=== PATIENT | female | born 1955 | race Caucasian/White ===

== ENCOUNTER 2020-09-27 13:40 | Outpatient (REF) | payer BC, SELFPAY ==
[2020-09-30 10:22] LABS: SARS-CoV-2 RNA Not Detected (NotDetected); SARS-CoV-2 RNA Source Nasal/Nares
== END 2020-09-27 14:00 ==
LOC: NCHCN 13:40
PROVIDERS: PCP Internal Medicine; Visit Provider Family Medicine
DX: J06.9 Acute upper respiratory infection, unspecified (principal)
CPT/HCPCS: U0003

== ENCOUNTER 2023-05-01 15:16 | Outpatient (REF) | payer BC, SELFPAY ==
--- NOTE | 2023-05-01 14:00 | PAPFT_PTH ---
PATIENT: Elicia Adorno LOC: [facility]#:[id number] AGE/SX: 67/F ROOM: RE05/01/[address]: Monika Salazar : 1955 BED: DIS: 05/01/2023 SPEC #: [id number] RECD: 05/02/23 12:59 STATUS: DIVINA RESada #: [id number] SANAZ: 05/01/23 14:[address]: Monika Salazar DEPT: REPLACED BY [facility] Cytology RECD BY: Maite Bee ENTERED: 05/02/23 12:59 SP TYPE: PAPFT OTHR DR: Remington Rutledge Tissues: 1 - CX/ENDOCX FOR PAP SMEARS Procedures: PAP THIN PREP/[facility] Screening HPV DNA PROBE Comments: [id number]
== END 2023-05-01 15:17 | disposition home or self-care (01) ==
LOC: NCHCN 15:16
PROVIDERS: PCP Internal Medicine; Visit Provider Family Medicine
DX: Z12.72 Encounter for screening for malignant neoplasm of vagina (principal); Z11.51 Encounter for screening for human papillomavirus (HPV); Z87.410 Personal history of cervical dysplasia
CPT/HCPCS: 88142; 87624